=== PATIENT | male | born 1990 | race African-American/Black ===

== ENCOUNTER 2018-10-21 02:46 | Emergency (ER) | payer SELFPAY ==
[2018-10-21 03:39] LABS: #Basophils 0.1 thou/uL (0.0-0.2); #Eosinphils 0.1 thou/uL (0.0-0.7); #Lymphocytes 2.4 thou/uL (1.20-3.40); #Neutrophils 5.6 thou/uL (1.40-6.50); %Basophils 0.6 % (0.0-1.0); %Eosinophils 1.2 % (0.0-10.0); %Lymphocytes 26.1 % (21.0-51.0); %Monocytes 10.5 % (0.0-10.0); %Neutrophils 61.6 % (42.0-75.0); Hemoglobin 13.6 g/dL (14.0-18.0); Mean Corpuscular HGB CONC 32.1 g/dL (32.0-36.0); Mean Corpuscular Hemoglobin 24.3 pg (27.0-31.0); Mean Corpuscular Volume 75.9 fL (78.0-98.0); Mean Platelet Volume 10.6 fL (7.4-10.4); Platelet Count 257 thou/uL (130-400); RBC Distribution Width 16.3 % (11.5-14.5)
[2018-10-21 03:41] LABS: ALT (SGPT) 7 U/L (8-55); AST (SGOT) 21 U/L (5-34); Albumin 4.4 g/dL (3.5-5.0); Alkaline Phosphatase 95 U/L (40-150); Anion Gap 16 mmol/L (10-20); BUN (Urea Nitrogen) 8 mg/dL (8.9-20.6); Bilirubin, Total 0.6 mg/dL (0.2-1.2); CK (CPK) 322 U/L (30-200); Calc. Creatinine Clearance 0 mL/min (70-130); Calcium 9.6 mg/dL (7.8-10.44); Carbon Dioxide 21 mmol/L (22-29); Chloride 106 mmol/L (98-107); Estimated GFR-MDRD Greater than 90; Globulin 3.4 g/dL (2.4-3.5); Glucose 133 mg/dL (70-105); Magnesium 2.2 mg/dL (1.6-2.6); Potassium 3.8 mmol/L (3.5-5.1); Protein, Total 7.8 g/dL (6.0-8.3); Sodium 139 mmol/L (136-145)
--- NOTE | 2018-10-21 08:11 | RAD ---
CHEST 1 VIEW: HISTORY: Chest pain. COMPARISON: Chest radiograph from 2012. FINDINGS: Lungs are clear. No pneumothorax or effusion. Cardiac silhouette and mediastinal contours are withi n normal limits. IMPRESSION: No acute intrathoracic abnormality. POS: [facility]
--- NOTE | 2018-10-23 14:46 | EKG ---
Test Reason : CP Blood Pressure : / mmHG Vent. Rate : 093 BPM Atrial Rate : 093 BPM P-R Int : 112 ms QRS Dur : 096 ms QT Int : 368 ms P-R-T Axes : 031 070 046 degrees QTc Int : 457 ms Normal sinus rhythm Normal ECG Confirmed by LIZA ROMAN, MARY KATE Sutton ([id number]), department editor ANA MURDOCK ([id number] on 10/23/2018 2:45:44 PM Referred By: Confirmed By:MARY KATE DE JESUS MD
== END 2018-10-21 04:19 | disposition home or self-care (01) ==
LOC: ERS 02:46
DX: M79.10 Myalgia, unspecified site (principal); J45.909 Unspecified asthma, uncomplicated; F17.220 Nicotine dependence, chewing tobacco, uncomplicated
CPT/HCPCS: 71045; 80053; 82550; 83735; 84484; 85025; 93005

== ENCOUNTER 2018-11-24 18:03 | Emergency (ER) | payer SELFPAY ==
--- NOTE | 2018-11-24 21:25 | RAD ---
FRONTAL RADIOGRAPH CHEST: Date: 11-24-18 Comparison: 10-21-18 History: Fever. Weakness. FINDINGS: No pneumothorax, pleural fluid, focal consolidation or alveolar edema. Heart and mediastinal contours are unremarkable. IMPRESSION: No acute findings. POS: [facility]
== END 2018-11-24 20:23 | disposition home or self-care (01) ==
LOC: ERS 18:03
DX: J20.9 Acute bronchitis, unspecified (principal); J06.9 Acute upper respiratory infection, unspecified; J45.909 Unspecified asthma, uncomplicated
CPT/HCPCS: 36416; 71045

== ENCOUNTER 2020-08-12 21:00 | Emergency (ER) | payer OTHER, SELFPAY ==
[2020-08-12] MEDS ORDERED: Ibuprofen 200 MG TAB ONE (22:39)
--- NOTE | 2020-08-12 22:55 | RAD ---
XR Chest 1 View Portable HISTORY: Cough, fever COMPARISON: 11/24/2018 FINDINGS: The heart size is normal. The lungs are well expanded without focal areas of consolidation, pneumothorax or pleural effusions. IMPRESSION: No radiographic evidence of acute cardiopulmonary process.
[2020-08-13 11:40] LABS: SARS-CoV-2 MS2 Positive; SARS-CoV-2 N Gene Negative; SARS-CoV-2 S Gene Negative; SARS-CoV-2 by NAA Not Detected (NotDetected); SARS-CoV-2 orf1ab Negative
== END 2020-08-13 00:07 | disposition home or self-care (01) ==
LOC: ERS 21:00
DX: J06.9 Acute upper respiratory infection, unspecified (principal); Z20.828 Contact with and (suspected) exposure to other viral communicable diseases; J45.909 Unspecified asthma, uncomplicated; F17.220 Nicotine dependence, chewing tobacco, uncomplicated
CPT/HCPCS: 71045; 87635; 87804; U0003

== ENCOUNTER 2021-01-17 18:03 | Emergency (ER) | payer OTHER ==
[2021-01-17 23:52] LABS: SARS-CoV-2 PCR by NAA Not Detected (NotDetected)
== END 2021-01-17 19:00 | disposition home or self-care (01) ==
LOC: ERS 18:03
DX: Z20.822 Contact with and (suspected) exposure to COVID-19 (principal); F17.220 Nicotine dependence, chewing tobacco, uncomplicated
CPT/HCPCS: 87635; 99283; U0003; U0005

== ENCOUNTER 2021-11-29 12:07 | Emergency (ER) | payer SELFPAY ==
[2021-12-05 10:56] LABS: SARS-CoV-2 PCR by NAA DETECTED (NotDetected)
== END 2021-11-29 15:48 | disposition home or self-care (01) ==
LOC: ERS 12:07
DX: B34.9 Viral infection, unspecified (principal); Z20.822 Contact with and (suspected) exposure to COVID-19
CPT/HCPCS: 99283; U0003; U0005